=== PATIENT | male | born 1985 | race Two or more races ===

== ENCOUNTER 2023-06-22 06:03 | Day surgery (SDC) | payer OTHER ==
[2023-06-16 09:39] LABS: HEMATOCRIT 42.3 % (39.0-48.0); HEMOGLOBIN 14.3 g/dL (13-16.00); MEAN CELL VOLUME 88.8 fL (80.0-100.00); MEAN CORPUSCULAR HGB CONC 33.8 g/dl (32.0-36.0); PLATELET COUNT 315 K/uL (150-450); RED BLOOD COUNT 4.76 M/uL (4.00-6.00); RED CELL DISTRIBUTION WIDTH 13.7 % (11.5-14.5)
[~2023-06-22] VITALS: Ht 167.6 cm; Wt 97.5 kg
== END 2023-06-22 16:45 | disposition home or self-care (01) ==
LOC: CIR.AMB 06:03
PROVIDERS: ATTEND Surgery
DX: K43.6 Other and unspecified ventral hernia with obstruction, without gangrene (principal); Z88.6 Allergy status to analgesic agent; Z20.822 Contact with and (suspected) exposure to COVID-19
CPT/HCPCS: 49594; C1781